=== PATIENT | male | born 1945 | race Caucasian/White ===

== ENCOUNTER 2017-10-22 09:00 | Inpatient (IN) ==
[2017-10-22] MEDS ORDERED: ALBUTEROL/IPRATROPIUM 3 ML NEB RESP TX PRN (09:02)
[2017-10-22 13:00] LABS: Basophils # 0.1 10*3/uL (0.0-0.2); Basophils % 0.7 % (0.0-0.8); Eosinophils # 0.5 10*3/uL (0.0-0.87); Hematocrit 47.1 VOL% (42.0-52.0); Hemoglobin 16.4 GM/DL (14.0-18.0); Immature Granulocytes % 0.3 %; Immature Granulocytes Absolute 0.03 #; Lymphocytes # 1.7 10*3/uL (1.4-4.0); Lymphocytes % 18.5 % (21.2-54.2); Mean Corpuscular HGB Conc 34.8 GM/DL (32-36); Mean Corpuscular Hemoglobin 30 PG (27-34); Mean Corpuscular Volume 86.1 FL (87-102); Mean Platelet Volume 9.8 FL (9.6-12.0); Monocytes # 0.9 10*3/uL (0.11-0.8); Monocytes % 9.4 % (1.7-12.7); Neutrophils # 6.2 10*3/uL (1.4-7.4); Neutrophils % 66.1 % (38.7-73.9); Platelet Count 216 T/CUMM (130-400); Red Blood Count 5.47 MC/CUMM (3.8-5.5); Red Cell Distribution Width 14.1 % (9.3-17.3); White Blood Count 9.4 T/CUMM (4-12)
[2017-10-22 13:18] LABS: PT Patient Result 10.5 SECS
[2017-10-22 13:34] LABS: Albumin 3.5 G/DL (3.4-5.0); Bilirubin,Total 0.5 MG/DL (0.2-1.0); Calcium 8.8 MG/DL (8.5-10.1); Magnesium 2.3 MG/DL (1.8-2.4); Osmolality,Calculated 282.5 MOS/KG (273-304); Potassium 3.9 MMOL/L (3.5-5.1); Thyroid Stimulating Hormone 2.51 uIU/ml (0.358-3.74); Total Protein 6.9 G/DL (6.4-8.3)
[2017-10-22] MEDS: ALBUTEROL/IPRATROPIUM 3 ML NEB RESP TX SCH ×2 (14:38→19:36)
[2017-10-22 17:03] LABS: Apearance,Urine CLEAR (Clear); Bilirubin,Urine Negative (Negative); Blood, Urine Negative (Negative); Glucose,Urine (UA) Negative (Negative); Ketones,Urine Negative (Negative); Mucus,Urine Occasional /LPF (Occasional); Nitrite,Urine Negative (Negative); Protein,Urine Negative; RBC,Urine 1 /HPF (0-4); Urine Color Yellow (Yellow); Urine Specific Gravity 1.016 (1.001-1.035); Urine Urobilinogen < 2.0 EU/DL (0.2-1.0)
[2017-10-22] MEDS ORDERED: SODIUM CHLORIDE 0.9% 1,000 ML IV PRN (17:40)
[2017-10-22] MEDS ORDERED: CYANOCOBALAMIN 1000 MCG/1 ML VIAL IM SCH (18:00)
[2017-10-22] MEDS ORDERED: RACEPINEPHRINE 0.5 ML NEB RESP TX PRN (19:00)
[2017-10-22] MEDS: RACEPINEPHRINE 0.5 ML NEB RESP TX SCH (19:36)
[2017-10-22] MEDS: POTASSIUM CHLORIDE 20 MEQ/15 ML UDCUP PO SCH (21:05)
[2017-10-22] MEDS: CHOLECALCIFEROL 1,000 UNIT TABLET PO SCH (21:06)
[2017-10-22] MEDS: OMEGA 3 ACID ETHYL ESTERS 1 GM CAPSULE PO SCH (21:06)
[2017-10-22] MEDS: PANTOPRAZOLE 40 MG TABLET PO SCH (21:06)
[2017-10-22] MEDS: MAGNESIUM OXIDE 400 MG TABLET PO SCH (21:07)
[2017-10-22] MEDS: METOPROLOL TARTRATE 25 MG TABLET PO SCH (21:07)
[2017-10-23] MEDS: RACEPINEPHRINE 0.5 ML NEB RESP TX SCH ×4 (01:33→19:28)
[2017-10-23] MEDS: ALBUTEROL/IPRATROPIUM 3 ML NEB RESP TX SCH ×4 (01:33→19:28)
[2017-10-23 06:02] LABS: Basophils # 0.1 10*3/uL (0.0-0.2); Basophils % 0.7 % (0.0-0.8); Eosinophils # 0.2 10*3/uL (0.0-0.87); Eosinophils % 2.1 % (0.00-10.9); Hematocrit 41.5 VOL% (42.0-52.0); Hemoglobin 14.2 GM/DL (14.0-18.0); Immature Granulocytes % 0.3 %; Immature Granulocytes Absolute 0.02 #; Lymphocytes # 1.6 10*3/uL (1.4-4.0); Lymphocytes % 22.4 % (21.2-54.2); Mean Corpuscular HGB Conc 34.2 GM/DL (32-36); Mean Corpuscular Hemoglobin 30 PG (27-34); Mean Corpuscular Volume 87.2 FL (87-102); Mean Platelet Volume 9.5 FL (9.6-12.0); Monocytes # 0.8 10*3/uL (0.11-0.8); Monocytes % 11.8 % (1.7-12.7); Neutrophils # 4.5 10*3/uL (1.4-7.4); Neutrophils % 62.7 % (38.7-73.9); Platelet Count 182 T/CUMM (130-400); Red Blood Count 4.76 MC/CUMM (3.8-5.5); Red Cell Distribution Width 14.3 % (9.3-17.3); White Blood Count 7.1 T/CUMM (4-12)
[2017-10-23 06:36] LABS: Calcium 8.7 MG/DL (8.5-10.1); Osmolality,Calculated 284.3 MOS/KG (273-304); Potassium 4.4 MMOL/L (3.5-5.1)
[2017-10-23] MEDS: METOPROLOL TARTRATE 25 MG TABLET PO SCH (09:20)
[2017-10-23] MEDS: MAGNESIUM OXIDE 400 MG TABLET PO SCH ×2 (09:20→21:21)
[2017-10-23] MEDS: OMEGA 3 ACID ETHYL ESTERS 1 GM CAPSULE PO SCH ×2 (09:20→21:21)
[2017-10-23] MEDS: LOSARTAN 50 MG TABLET PO SCH (09:21)
[2017-10-23] MEDS: THEOPHYLLINE ER (24 HR) 200 MG CAPSULE PO SCH (09:21)
[2017-10-23] MEDS: hydroCHLOROthiazide 25 MG TABLET PO SCH (09:21)
[2017-10-23] MEDS: CHOLECALCIFEROL 1,000 UNIT TABLET PO SCH ×2 (09:21→21:21)
[2017-10-23] MEDS: PITAVASTATIN 2 MG TABLET PO SCH (09:22)
[2017-10-23] MEDS: POTASSIUM CHLORIDE 20 MEQ/15 ML UDCUP PO SCH ×2 (09:23→21:20)
[2017-10-23 15:14] LABS: Procalcitonin, S < 0.10 ng/mL (<=0.15)
[2017-10-23] MEDS: MEROPENEM 1,000 MG in SYRINGE 1 EACH IV SCH (21:20)
[2017-10-23] MEDS: cefTAZidime 1,000 MG in SYRINGE 1 EACH IV SCH (21:20)
[2017-10-23] MEDS: PANTOPRAZOLE 40 MG TABLET PO SCH (21:21)
[2017-10-24] MEDS: RACEPINEPHRINE 0.5 ML NEB RESP TX SCH ×3 (01:19→13:19)
[2017-10-24] MEDS: ALBUTEROL/IPRATROPIUM 3 ML NEB RESP TX SCH ×3 (01:19→13:19)
[2017-10-24] MEDS: METOPROLOL TARTRATE 25 MG TABLET PO SCH ×2 (01:36→08:51)
[2017-10-24] MEDS: cefTAZidime 1,000 MG in SYRINGE 1 EACH IV SCH ×2 (04:12→13:30)
[2017-10-24] MEDS: MEROPENEM 1,000 MG in SYRINGE 1 EACH IV SCH ×2 (04:12→12:30)
[2017-10-24 06:30] LABS: Basophils # 0.1 10*3/uL (0.0-0.2); Basophils % 0.8 % (0.0-0.8); Eosinophils # 0.2 10*3/uL (0.0-0.87); Eosinophils % 3.3 % (0.00-10.9); Hematocrit 43.4 VOL% (42.0-52.0); Hemoglobin 15.1 GM/DL (14.0-18.0); Immature Granulocytes % 0.4 %; Immature Granulocytes Absolute 0.03 #; Lymphocytes # 1.2 10*3/uL (1.4-4.0); Mean Corpuscular HGB Conc 34.8 GM/DL (32-36); Mean Corpuscular Hemoglobin 30 PG (27-34); Mean Corpuscular Volume 85.6 FL (87-102); Mean Platelet Volume 9.7 FL (9.6-12.0); Monocytes # 0.8 10*3/uL (0.11-0.8); Monocytes % 10.3 % (1.7-12.7); Neutrophils # 5.1 10*3/uL (1.4-7.4); Neutrophils % 69.2 % (38.7-73.9); Platelet Count 197 T/CUMM (130-400); Red Blood Count 5.07 MC/CUMM (3.8-5.5); Red Cell Distribution Width 14.6 % (9.3-17.3); White Blood Count 7.3 T/CUMM (4-12)
[2017-10-24 06:40] LABS: PT Patient Result 10.5 SECS
[2017-10-24 07:08] LABS: Calcium 8.8 MG/DL (8.5-10.1); Osmolality,Calculated 282.4 MOS/KG (273-304); Potassium 4.2 MMOL/L (3.5-5.1)
[2017-10-24] MEDS ORDERED: MEPERIDINE 50 MG/1 ML VIAL IM ONE (08:00)
[2017-10-24] MEDS ORDERED: diphenhydrAMINE 50 MG/1 ML VIAL IM ONE (08:00)
[2017-10-24] MEDS ORDERED: BENZONATATE 100 MG CAPSULE PO ONE (08:00)
[2017-10-24] MEDS ORDERED: LIDOCAINE 2% VISCOUS 100 ML BOTTLE SWISH/SPIT ONE (08:30)
[2017-10-24] MEDS ORDERED: LIDOCAINE 1% 20 ML VIAL MISC INJ ONE (08:30)
[2017-10-24] MEDS ORDERED: LIDOCAINE 2% 20 ML VIAL RESP TX ONE (08:30)
[2017-10-24] MEDS: OMEGA 3 ACID ETHYL ESTERS 1 GM CAPSULE PO SCH (08:51)
[2017-10-24] MEDS: PITAVASTATIN 2 MG TABLET PO SCH (08:51)
[2017-10-24] MEDS: hydroCHLOROthiazide 25 MG TABLET PO SCH (08:51)
[2017-10-24] MEDS: LOSARTAN 50 MG TABLET PO SCH (08:51)
[2017-10-24] MEDS: POTASSIUM CHLORIDE 20 MEQ/15 ML UDCUP PO SCH (08:52)
[2017-10-24] MEDS: CHOLECALCIFEROL 1,000 UNIT TABLET PO SCH (08:52)
[2017-10-24] MEDS: THEOPHYLLINE ER (24 HR) 200 MG CAPSULE PO SCH (08:52)
[2017-10-24] MEDS: MAGNESIUM OXIDE 400 MG TABLET PO SCH (08:52)
[2017-10-24 16:50] VITALS: BP 120/67
== END 2017-10-24 17:42 | disposition home or self-care (01) | DRG 988 ==
LOC: N.ADMINP 10:36
PROVIDERS: ADMIT Internal Medicine Pulmonary Disease; ATTEND Internal Medicine Pulmonary Disease